=== PATIENT | male | born 1970 | race Caucasian/White ===

== ENCOUNTER 2022-12-18 08:43 | Emergency (ER) | payer OTHER, BC ==
[2022-12-18 08:52] VITALS: BP 142/97; PULSE 66; RESP 18; TEMP 98.1; BMI 31.0
[2022-12-18] MEDS ORDERED: IBUPROFEN 600 MG TABLET (FP) PO ONE ×2 (08:57→09:25)
== END 2022-12-18 09:37 | disposition home or self-care (01) ==
LOC: FER 08:43
DX: S39.012A Strain of muscle, fascia and tendon of lower back, initial encounter (principal); V49.40XA Driver injured in collision with unspecified motor vehicles in traffic accident, initial encounter
CPT/HCPCS: 73502-TC-LT-FY; 99283-25